=== PATIENT | female | born 1985 | race Caucasian/White ===

== ENCOUNTER 2017-04-18 21:24 | Emergency (ER) | payer SELFPAY ==
[2017-04-18 21:51] LABS: Bilirubin Negative (Negative); Blood, Urine Moderate (Negative); Clarity Cloudy (Clear); Glucose, Urine (Dipstick) Negative (Negative); Leukocyte Large (Negative); Nitrite Positive (Negative); Protein, Urine (Dipstick) 30 mg/dL (Neg-Trace); Specific Gravity, Urine 1.015 (1.005-1.030); Urobilinogen 0.2 mg/dL (0.2-1.0); pH, Urine 7.5 (5.0-9.0)
[2017-04-18 21:52] LABS: Pregnancy Test - Urine (BHCG) Negative (NEGATIVE); Pregu Control Background? CLEAR/WHITE (CLR/WHITE); Pregu Control Bar Appear? YES (CONTROL BAR); Specific Gravity 1.015 (1.002-1.036)
[2017-04-18 21:54] LABS: Amphetamine Detected (NotDetected); Barbiturates Screen Not Detected (NotDetected); Benzodiazepine Screen Not Detected (NotDetected); Cocaine Metabolite Screen Not Detected (NotDetected); Medtox Control Line Valid? VALID (VALID); Methadone Not Detected (NotDetected); Methamphetamine Detected (NotDetected); Opiate Screen Not Detected (NotDetected); Oxycodone Screen Not Detected (NotDetected); Phencyclidine (PCP) Not Detected (NotDetected); THC/Cannabinoid Screen Not Detected (NotDetected); Tricyclic Screen Not Detected (NotDetected)
[2017-04-18 21:55] LABS: Bacteria/HPF 1+ HPF (None Seen); Squamous Epithelial 0-3 HPF (0-3); WBC/HPF 21-50 HPF (0-3)
[2017-04-18] MEDS ORDERED: Ketorolac Tromethamine 30 MG/ML VIAL ONE (22:28)
[2017-04-18] MEDS ORDERED: Acetaminophen 500 MG TAB ONE (22:28)
[2017-04-18] MEDS ORDERED: Sodium Chloride 0.9% 1,000 ML ONE (22:28)
[2017-04-18] MEDS ORDERED: cefTRIAXone\\ROCEPHIN 2 GM VIAL ONE (22:29)
[2017-04-18] MEDS ORDERED: Ondansetron HCl/PF 4 MG/2 ML Vial ONE (22:29)
[2017-04-18] MEDS ORDERED: Sodium Chloride 0.9% 100 ML ONE (22:33)
[2017-04-18 22:38] LABS: Band 7 % (5-11); Lymphocytes 10 % (21-51); MDiff Complete? YES; Mean Corpuscular HGB CONC 32.9 g/dL (32.0-36.0); Mean Corpuscular Hemoglobin 29.1 pg (27.0-31.0); Mean Corpuscular Volume 88.4 fl (81.0-99.0); Mean Platelet Volume 5.6 fL (7.4-10.4); Monocytes 6 % (0-10); Myelocyte 1 % (0-0); Neutrophil 76 % (42-75); PLT Morphology Comment Appears Adequate; Platelet Count 346 thou/uL (130-400); RBC Distribution Width 11.3 % (11.5-14.5); RBC Morphology Normal; Red Blood Cell (RBC) Count 4.47 mill/uL (4.20-5.40); White Blood Cell (WBC) Count 13.4 thou/uL (4.8-10.8)
[2017-04-18 22:45] LABS: ALT (SGPT) 25 U/L (8-55); AST (SGOT) 13 U/L (5-34); Albumin 3.5 g/dL (3.5-5.0); Alcohol Less than 10 mg/dL (Less than 10); Alkaline Phosphatase 85 U/L (40-150); Anion Gap 14 mmol/L (10-20); BUN (Urea Nitrogen) 4 mg/dL (7.0-18.7); Bilirubin, Total 0.3 mg/dL (0.2-1.2); Calc. Creatinine Clearance 0 mL/min (70-130); Calcium 9.2 mg/dL (7.8-10.44); Carbon Dioxide 24 mmol/L (22-29); Chloride 99 mmol/L (98-107); Estimated GFR-MDRD Greater than 90; Glucose 111 mg/dL (70-105); Potassium 3.6 mmol/L (3.5-5.1); Protein, Total 7.5 g/dL (6.0-8.3); Sodium 133 mmol/L (136-145)
--- NOTE | 2017-04-18 23:51 | CT ---
CT ABDOMEN AND PELVIS WITHOUT IV CONTRAST 04/18/17 Multiple axial tomograms obtained without IV enhancement. HISTORY: Kidney stones, fever, right back pain. Lung bases are clear. Liver, spleen and pancreas are unremarkable given the limitations of a noncontrast study. No evidence of urinary tract calculus or obstruction. The kidneys appear unremarkable. Small bowel l oops are normal caliber. Stool throughout the colon. Images through the pelvis appear unremarkable. Appendix is not definitely identified. IMPRESSION: Exam is severely limited due to lack of intra-abdominal fat planes and the lack of IV and oral contr ast. No definite acute process identified. POS: [facility]
== END 2017-04-19 02:20 | disposition home or self-care (01) ==
LOC: NAV ERS 21:24
DX: N39.0 Urinary tract infection, site not specified (principal); Z87.891 Personal history of nicotine dependence
CPT/HCPCS: 36415; 74176; 80053; 80306; 80307; 81003; 81015; 81025; 83605; 84443; 85025; 87077; 87086; 87186; 93005; 96361; 96365; 96375; J0696; J1885; J2405; J7050